=== PATIENT | male | born 1960 | race Caucasian/White ===

== ENCOUNTER 2016-07-21 20:35 | Emergency (ER) | payer BC ==
[2016-07-21] MEDS ORDERED: SILVER NITRATE 1 APP APP TOPICAL ONE (21:00)
--- NOTE | 2016-07-21 21:22 | ER NURSING DOCUMENTATION ---
Nurse's Notes [facility] Name:Rio Pittman Age:56 yrs Sex:Male :1960 Arrival Date:07/21/2016 Time:20:35 Bed2 Private MD:Zhang Sanders Diagnosis:Anterior Epistaxis Presentation: 07/21 20:37 Presenting complaint: Patient states: Nosebleed. Transition of care: Home. lp 20:37 Acuity: RAÚL 3 lp 20:37 Method Of Arrival: EMS: 410 lp 20:42 Notified ED Physician of patient's arrival and CC Dr. Ledesma notified. sc1 Triage Assessment: 20:42 General: Appears in no apparent distress, well developed, well nourished, well groomed, sc1 Behavior is cooperative, pleasant. Pain: Denies pain. Historical: - Allergies: No known drug Allergies; - Home Meds: 1. Prednisone Oral - PMHx: None; - PSHx: None; - Ebola Screening: : Patient negative for fever greater than or equal to 101.5 degrees Fahrenheit, and additional compatible Ebola Virus Disease symptoms. Patient denies exposure to infectious person. Patient denies travel to an Ebola-affected area in the 21 days before illness onset. No symptoms or risks identified at this time. . Screenin:46 Infectious Disease Risk None. Abuse screen: Denies threats or abuse. Nutritional sc1 screening: No deficits noted. Vital Signs: 20:43 BP 134 / 96; sc1 20:56 Pulse 104; Resp 18; Temp 97.8; Pulse Ox 91% on R/A; sc1 ED Course: 20:36 Patient arrived in ED. em2 20:37 Triage completed. lp 20:42 Zhanna Yoo, RN is Primary Nurse. sc1 20:45 Assist Provider Assist provider with nosebleed control using Afrin sprays, simple sc1 cauterization, Bleeding from right nares. Set up for procedure. Performed by Frank Ledesma MD Bleeding stopped. Patient tolerated well. 20:46 Valuables Remains with patient. sc1 20:[address] Ledesma notified. Arm band placed on Bed in low position Call sc1 Light in Reach HOB Elevated. 21:12 Zhang Sanders is Private Physician. em2 21:13 Frank Ledesma MD is Attending Physician. cd Administered Medications: 20:48 Drug: Afrin Drops (0.05 %) 1 sprays; Route: Intranasal; Site: right nare; [facility] [place] 20:48 Drug: Silver Nitrate Applicators 1 application; Route: Topical; Site: affected area; [facility] [place] Outcome: 21:15 Discharge ordered by . cd 21:20 Discharged to home ambulatory. [facility] [place] 21:20 Condition: stable 21:20 Discharge instructions given to patient, Instructed on discharge instructions, follow up and referral plans. Demonstrated understanding of instructions. 21:21 Patient left the ED. [facility] [place] 07/22 15:02 Discharge F/U Call: Spoke with: patient. other: Name: pt is doing well. pt was st concerned that the packing felt most. pt was assured that this was normal. pt had no other questions or concerns. Signatures: Sheba Castorena, RN Zhanna Edwards RN RN wy1 Danielle Dillon RN RN lp Daley, Chris, MD MD cd Meinking-reg, Bry em2
--- NOTE | 2016-07-21 21:22 | ER PHYSICIAN DOCUMENTATION ---
Physician Documentation [facility] Name:Rio Pittman Age:56 yrs Sex:Male :1960 Arrival Date:07/21/2016 Time:20:35 Bed2 Private MD:Zhang Sanders ED, Chris Disposition: 07/21 21:13 Chart complete. Chart complete. cd Disposition: 07/21/16 21:15 Discharged to Home/Self Care. Impression: Anterior Epistaxis. - Condition is Good. - Discharge Instructions: EPISTAXIS (Adult), NASAL PACKING, Anterior (Removable). - Prescriptions for Amoxicillin 500 mg Oral - take 1 capsule by ORAL route every 8 hours for 3 days; 10 tablet. - Medical Reconciliation form form. - Follow up: Emergency Department; When: 07/24/2016; Reason: Recheck today's complaints, Continuance of care. - Problem is new. - Symptoms are resolved. - Notes: Drink 2 - 3 quarts of water every day. Take Amoxil 500mg by mouth every 8 hours for 3 days Return in 3 days for packing removal. Use Humidifier at your bedside. Use Ayre Nasal lubricant to keep your nasal passages moist. HPI: 20:37 This 56 yrs old Male presents to ER via EMS with complaints of Nose Bleed. cd 20:37 The patient presents with a nose bleed, that is apparently anterior, from the right cd nare, occurred while picking nose, that is continuous moderate amount with clots, causative factors include: previous HX of nosebleeds, and the bleeding is not resolved and continues in ER. Onset: The symptom(s)/episode began/occurred acutely, just prior to arrival. Associated signs and symptoms: The patient has no apparent associated signs or symptoms, Loss of consciousness: the patient experienced no loss of consciousness. Severity of symptoms: At their worst the symptoms were moderate in the emergency department the symptoms are unchanged. Historical: - Allergies: No known drug Allergies; - Home Meds: 1. Prednisone Oral - PMHx: None; - PSHx: None; - Ebola Screening: : Patient negative for fever greater than or equal to 101.5 degrees Fahrenheit, and additional compatible Ebola Virus Disease symptoms. Patient denies exposure to infectious person. Patient denies travel to an Ebola-affected area in the 21 days before illness onset. No symptoms or risks identified at this time. . ROS: 20:45 Eyes: Negative for injury, pain, redness, discharge, blurry vision and loss of vision. cd Neck: Negative for injury, pain, stiffness and swelling. 20:45 Respiratory: Negative for shortness of breath, dyspnea on exertion, cough, sputum cd production, wheezing, hemoptysis and pleuritic chest pain. 20:45 Constitutional: Positive for poor PO intake, Negative for fever. 20:45 ENT: Positive for nose bleed, Negative for nasal discharge, rhinorrhea, sinus congestion, sinus pain, sore throat. Exam: Eyes: Pupils equal round and reactive to light, extra-ocular motions intact. Lids and lashes normal. Conjunctiva and sclera are non-icteric and not injected. Cornea within normal limits. Periorbital areas with no swelling, redness, or edema. Neck: Trachea midline, no thyromegaly or masses palpated, and no cervical lymphadenopathy. Supple, full range of motion without nuchal rigidity, or vertebral point tenderness. No Meningismus. 20:45 Respiratory: Lungs have equal breath sounds bilaterally, clear to auscultation and cd percussion. No rales, rhonchi or wheezes noted. No increased work of breathing, no retractions or nasal flaring. 20:45 Constitutional: The patient appears alert, awake, non-diaphoretic, non-toxic, well developed, well nourished, anxious. 20:45 ENT: Nose: bleeding, is seen from the right nare, and is moderate, and is profuse, clotted blood, in right nare. Vital Signs: 20:43 BP 134 / 96; sc1 20:56 Pulse 104; Resp 18; Temp 97.8; Pulse Ox 91% on R/A; sc1 Procedures: 20:45 Epistaxis treatment: A moderate amount of bleeding noted from right nare. Treated using cd Oxymetazoline sprays, cauterization, silver nitrate, direct pressure, nasal clamp, rhino rocket, Bleeding stopped. MDM: 20:40 Data interpreted: Pulse oximetry: on room air is 91 %. Interpretation: normal. cd Counseling: I had a detailed discussion with the patient and/or guardian regarding: the historical points, exam findings, and any diagnostic results supporting the discharge/admit diagnosis, the need for outpatient follow up, for a recheck, with the patient's primary care provider, to return to the emergency department if symptoms worsen or persist or if there are any questions or concerns that arise at home. Response to treatment: the patient's symptoms have markedly improved after treatment, the patient's condition has returned to base line, and as a result, I will discharge patient. 21:10 Data reviewed: vital signs, nurses notes, old medical records, and as a result, I will cd discharge patient. 21:13 Patient medically screened. cd Dispensed Medications: 20:48 Drug: Afrin Drops (0.05 %) 1 sprays; Route: Intranasal; Site: right nare; de1 20:48 Drug: Silver Nitrate Applicators 1 application; Route: Topical; Site: affected area; sc1 Signatures: Zhanna Yoo RN RN sc1 Frank Ledesma MD MD
[2016-07-21] MEDS ORDERED: AMOXICILLIN 250 MG CAPSULE PO ONE (21:29)
[2016-07-21] MEDS ORDERED: OXYMETAZOLINE 0.05% NASAL 15 SPRAYS/15 ML BTL NASAL ONE (21:30)
[2016-07-22] MEDS ORDERED: SILVER NITRATE 1 APP APP TOPICAL ONE (05:49)
[2016-07-22] MEDS ORDERED: OXYMETAZOLINE 0.05% NASAL 15 SPRAYS/15 ML BTL NASAL ONE (05:49)
== END 2016-07-21 21:22 | disposition home or self-care (01) ==
LOC: ER 20:35
DX: R04.0 Epistaxis (principal)
CPT/HCPCS: 30901; 30903; 99283; A0425; A0429

== ENCOUNTER 2016-07-24 13:36 | Emergency (ER) | payer BC ==
--- NOTE | 2016-07-24 14:11 | ER NURSING DOCUMENTATION ---
Nurse's Notes [facility] Name:Rio Pittman Age:56 yrs Sex:Male :1960 Arrival Date:07/24/2016 Time:13:36 Bed2 Private MD: Diagnosis:Epistaxis - Nose Bleed Presentation: 07/24 13:46 Acuity: RAÚL 5 rh 13:59 Presenting complaint: Patient states: HERE FOR PACKING REMOVAL FROM 3 DAYS AGO TO RIGHT lc NARE, HAS NO PROBLEMS SINCE THEN. Transition of care: patient was not received from another setting of care. 13:59 Method Of Arrival: Private Vehicle Triage Assessment: 14:02 General: Appears in no apparent distress, Behavior is cooperative. Pain: Denies pain. lc EENT: Nares NO DRAINAGE, PACKING IN PLACE. Historical: - Allergies: No known drug Allergies; - Home Meds: 1. Prednisone Oral - PMHx: NONE; Anterior Epistaxis (July 21, 2016); - PSHx: NONE; - Tetanus: < 10 years. - Ebola Screening: : Patient negative for fever greater than or equal to 101.5 degrees Fahrenheit, and additional compatible Ebola Virus Disease symptoms. - Immunization history: Flu Vaccine unknown. - Social history: Smoking status: Patient states was never smoker of tobacco. Screenin:05 Infectious Disease Risk None. Abuse screen: Denies threats or abuse. Denies injuries lc from another. Nutritional screening: No deficits noted. On. Assessment: 14:05 See Triage Assessment done by same RN. Vital Signs: 14:04 BP 124 / 80; Pulse 104; Resp 16; Temp 98.2; Pulse Ox 96% on R/A; Weight 87.54 kg; lc Height 5 ft. 10 in. (177.80 cm); Pain 0/10; 14:04 Body Mass Index 27.69 (87.54 kg, 177.80 cm) ED Course: 13:38 Patient arrived in ED. ama 13:46 Triage completed. rh 13:59 Ashley Villeda, RN is Primary Nurse. 14:05 Valuables Remains with patient Patient has correct armband on for positive lc identification. Bed in low position. Call light in reach. 14:06 NASAL PACKING. lc Administered Medications: No medications were administered Outcome: 14:07 Discharged to home ambulatory. 14:07 Condition: stable 14:07 Discharge Assessment: Patient awake, alert and oriented x 3. No cognitive and/or functional deficits noted. Patient verbalized understanding of disposition instructions. NO BLEEDING AFTER PACKING REMOVED 14:07 Discharge instructions given to patient, Instructed on discharge instructions, follow up and referral plans. GIVEN VERBALLY Demonstrated understanding of instructions. 14:07 No charge visit due to PACKING REMOVAL. 14:10 Discharge ordered by . laura 14:10 Patient left the ED. lc Signatures: Ashley Villeda RN RN Valerio Underwood Reg Reg ama Hofsess, Rachel
== END 2016-07-24 14:11 | disposition home or self-care (01) ==
LOC: ER 13:36
DX: Z48.00 Encounter for change or removal of nonsurgical wound dressing (principal); R04.0 Epistaxis